=== PATIENT | female | born 1950 | race Caucasian/White ===

== ENCOUNTER 2019-02-01 13:32 | Day surgery (SDC) | payer OTHER, MEDICARE ==
[~2019-02-01] VITALS: Ht 165.1 cm; Wt 97.1 kg
[~2019-02-01 13:32] MED LIST: DULOXETINE HCL30 MG PO; DULOXETINE HCL60 MG PO; FOLIC ACID0.4 MG PO; LEVO-T75 MCG PO; MULTIVITAMINS PO
[2019-02-01 14:37] VITALS: BP 154/88
== END 2019-02-01 16:23 | disposition home or self-care (01) ==
LOC: OR 13:32 → TBA 13:41 → OR 13:41
DX: M72.2 Plantar fascial fibromatosis (principal); M25.572 Pain in left ankle and joints of left foot; M76.62 Achilles tendinitis, left leg; F32.9 Major depressive disorder, single episode, unspecified; Z85.820 Personal history of malignant melanoma of skin; Z98.41 Cataract extraction status, right eye; Z98.42 Cataract extraction status, left eye; Z98.890 Other specified postprocedural states; Z85.118 Personal history of other malignant neoplasm of bronchus and lung; Z85.05 Personal history of malignant neoplasm of liver; Z85.79 Personal history of other malignant neoplasms of lymphoid, hematopoietic and related tissues; Z90.710 Acquired absence of both cervix and uterus; Z79.899 Other long term (current) drug therapy; Z88.0 Allergy status to penicillin; Z91.041 Radiographic dye allergy status; Z88.8 Allergy status to other drugs, medicaments and biological substances
CPT/HCPCS: 50010; 50101; 50386; 51291; 57091; 57178